=== PATIENT | male | born 1985 | race Hispanic/Latino ===

== ENCOUNTER 2022-11-11 07:36 | Emergency (ER) | payer MEDICAID ==
[~2022-11-11] VITALS: Ht 185.4 cm; Wt 81.6 kg
[2022-11-11 09:51] VITALS: BP 110/57
== END 2022-11-11 10:00 | disposition home or self-care (01) ==
LOC: EDH 07:36
DX: S05.12XA Contusion of eyeball and orbital tissues, left eye, initial encounter (principal); F41.9 Anxiety disorder, unspecified; F32.A Depression, unspecified; F20.9 Schizophrenia, unspecified; X83.8XXA Intentional self-harm by other specified means, initial encounter; Y93.89 Activity, other specified; Y92.89 Other specified places as the place of occurrence of the external cause; Y99.8 Other external cause status
CPT/HCPCS: 36415; 70486; 80053; 80164; 82550; 84146; 85025

== ENCOUNTER 2022-11-11 18:24 | Emergency (ER) | payer MEDICAID ==
[~2022-11-11] VITALS: Ht 462.3 cm; Wt 81.2 kg
[2022-11-11 18:47] LABS: BASOPHILS % (AUTO) 0.3 % (0.0-5.0); EOSINOPHILS % (AUTO) 0.1 % (0.0-8.0); HEMATOCRIT 40.5 % (42-54); LYMPHOCYTES % (AUTO) 8.4 % (21.0-51.0); MEAN CORPUSCULAR HGB CONC 34.1 g/dL (32.0-36.0); MEAN CORPUSCULAR VOLUME 85.1 fL (79-99); MONOCYTES % (AUTO) 6.5 % (3.0-13.0); NEUTROPHILS % (AUTO) 84.3 % (40.0-77.0); PLATELET COUNT (AUTO) 248 K/uL (130-400); RED BLOOD CELL COUNT(AUTO) 4.76 MIL/uL (4.50-6.20); RED CELL DISTRIBUTION WIDTH 13.3 % (11.0-15.5); WHITE BLOOD COUNT (AUTO) 14.9 K/uL (4.8-10.8)
[2022-11-11 19:04] LABS: ALANINE AMINOTRANSFERASE 45 U/L (12-78); ALBUMIN 4.1 g/dL (3.5-5.0); ASPARTATE AMINOTRANSFERASE 63 U/L (10-37); CARBON DIOXIDE 25 mmol/L (21-32); CHLORIDE 99 mmol/L (101-111); CREATININE 1.4 mg/dL (0.5-1.5); GLOMERULAR FILTR. RATE CALC 67 mL/min (>90); GLUCOSE,RANDOM 93 mg/dL (70-105); POTASSIUM 3.1 mmol/L (3.5-5.1); SODIUM SERUM 132 mmol/L (136-145); TOTAL PROTEIN, SERUM 7.4 g/dL (6.0-8.3); UREA NITROGEN, BLOOD 16 mg/dL (7-18)
[2022-11-11 19:10] VITALS: BP 113/73
[2022-11-11] MEDS: 0.9%NACL 1000ML 1,000 ML IV ONE ×2 (19:10→19:38)
[2022-11-11 19:22] LABS: VALPROIC ACID < 3 mcg/mL (50-100)
[2022-11-11] MEDS ORDERED: LEVETIRACETAM 500 MG/5 ML SD VIAL IV SCH (19:30)
[2022-11-12] MEDS ORDERED: POTASSIUM BICARB/CIT AC 25 MEQ TABLET.EFF PO SCH (09:00)
== END 2022-11-11 20:47 | disposition home or self-care (01) ==
LOC: EDH 18:24
DX: R56.9 Unspecified convulsions (principal); F41.9 Anxiety disorder, unspecified; F31.9 Bipolar disorder, unspecified; F20.9 Schizophrenia, unspecified
CPT/HCPCS: 36415; 80053; 80164; 82550; 84146; 85025